=== PATIENT | male | born 1960 | race Two or more races ===

== ENCOUNTER 2017-10-13 11:10 | Emergency (ER) | payer OTHER ==
[~2017-10-13] VITALS: Ht 180.3 cm; Wt 90.7 kg
[~2017-10-13 11:10] MED LIST: ADDERALL 10 MG10 MG; PROZAC10 MG
== END 2017-10-13 16:01 | disposition home or self-care (01) ==
LOC: ER 11:10
DX: L03.012 Cellulitis of left finger (principal); B34.9 Viral infection, unspecified

== ENCOUNTER 2018-09-18 21:50 | Emergency (ER) | payer OTHER ==
[~2018-09-18] VITALS: Ht 180.3 cm; Wt 98.0 kg
[2018-09-19] MEDS ORDERED: DUI500 PO (01:14)
== END 2018-09-19 01:35 ==
LOC: ER 21:50
DX: S61.411A Laceration without foreign body of right hand, initial encounter (principal); W25.XXXA Contact with sharp glass, initial encounter; Y93.G1 Activity, food preparation and clean up; Y92.098 Other place in other non-institutional residence as the place of occurrence of the external cause; Y99.8 Other external cause status

== ENCOUNTER 2018-09-27 16:19 | Emergency (ER) | payer OTHER ==
[~2018-09-27] VITALS: Ht 180.3 cm; Wt 98.4 kg
[~2018-09-27 16:19] MED LIST changes: +DUI500 PO
== END 2018-09-27 17:40 | disposition home or self-care (01) ==
LOC: ER 16:19
DX: Z48.02 Encounter for removal of sutures (principal)

== ENCOUNTER 2022-07-18 11:11 | Emergency (ER) | payer OTHER ==
[~2022-07-18] VITALS: Ht 180.3 cm; Wt 104.3 kg
== END 2022-07-18 13:38 | disposition home or self-care (01) ==
LOC: ER 11:11
DX: S61.356A Open bite of right little finger with damage to nail, initial encounter (principal); S61.354A Open bite of right ring finger with damage to nail, initial encounter; S61.352A Open bite of right middle finger with damage to nail, initial encounter; W54.0XXA Bitten by dog, initial encounter; Y93.89 Activity, other specified; Y92.018 Other place in single-family (private) house as the place of occurrence of the external cause; Y99.9 Unspecified external cause status

== ENCOUNTER 2022-07-28 15:06 | Emergency (ER) | payer OTHER ==
[~2022-07-28] VITALS: Ht 180.3 cm; Wt 104.3 kg
== END 2022-07-28 18:00 | disposition home or self-care (01) ==
LOC: ER 15:06
DX: L03.011 Cellulitis of right finger (principal)